=== PATIENT | male | born 1960 | race Caucasian/White ===

== ENCOUNTER 2019-12-03 17:25 | Inpatient (IN) | payer MEDICAID ==
[~2019-12-03] VITALS: Ht 165.1 cm; Wt 71.7 kg
--- NOTE | 2019-12-03 17:33 | NUR ---
DR SALCIDO EVALUATING PT AT BEDSIDE
[2019-12-03 17:35] VITALS: BP 154/141
[2019-12-03] MEDS ORDERED: ASPIRIN 325 MG TAB PO ONE (17:35)
[2019-12-03] MEDS ORDERED: MORPHINE SULFATE 4 MG/ML SYR IVP ONE (17:35)
--- NOTE | 2019-12-03 17:35 | NUR ---
PT PLACED ON 3 LEAD ECG AND PULSE OX.
--- NOTE | 2019-12-03 17:43 | NUR ---
59/M BIBA ALS WITH CC: MID CHEST PAIN RADIATING TO RT FLANK X 3 DAYS. STATES SOB. RR23. DENIES N/V/D/FEVER/CHILLS. DENIES DIZZINESS AND BLURRY VISION. HYPERTENSIVE AT 154/141, DR SALCIDO AWARE. HX-HTN, KIDNEY STONES, DM, HYPERCHOLESTEROLEMIA, 5MI, 3 STROKE ALL- VICODIN
--- NOTE | 2019-12-03 17:43 | NUR ---
DR. SALCIDO AWARE OF VS, BP OF 154/141
--- NOTE | 2019-12-03 17:50 | NUR ---
SERVER CASHIER AT BEDSIDE FOR BLOOD DRAW
--- NOTE | 2019-12-03 17:52 | NUR ---
TO CT VIA [facility]
--- NOTE | 2019-12-03 18:00 | NUR ---
Patient returned from CT scan. RN re-evaluating the patient at bedside.
[2019-12-03 18:01] LABS: BASOPHILS % (AUTO) 0.4 % (0.0-2.0); EOSINOPHILS # (AUTO) 0.4 K/uL (0-0.4); EOSINOPHILS % (AUTO) 4.4 % (0.0-4.0); HEMATOCRIT 41.2 % (36-52); HEMOGLOBIN 13.2 g/dL (12.0-18.0); LYMPHOCYTES # (AUTO) 1.2 K/uL (2.0-11.5); LYMPHOCYTES % (AUTO) 14.8 % (20.5-51.1); MEAN CORPUSCULAR HEMOGLOBIN 27 pg (27-31); MEAN CORPUSCULAR HGB CONC 32 g/dL (33-37); MEAN CORPUSCULAR VOLUME 84.2 fL (80-94); MONOCYTES # (AUTO) 0.5 K/uL (0.8-1.0); MONOCYTES % (AUTO) 5.7 % (1.7-9.3); NEUTROPHILS # (AUTO) 6.1 K/uL (1.8-7.7); NEUTROPHILS % (AUTO) 74.7 % (42.2-75.2); PLATELET COUNT (AUTO) 238 K/uL (140-450); RED CELL DISTRIBUTION WIDTH 17.1 % (11.6-13.7); WHITE BLOOD COUNT (AUTO) 8.2 K/uL (4.8-10.8)
--- NOTE | 2019-12-03 18:04 | NUR ---
DR SALCIDO AT BEDSIDE
--- NOTE | 2019-12-03 18:12 | NUR ---
EMT AT BEDSIDE FOR EKG
[2019-12-03] MEDS ORDERED: MAG SULF 2000 MG/WATER PREMIX 50 ML IV ONE (18:15)
[2019-12-03] MEDS ORDERED: ALBUTEROL SULFATE/IPRATROPIU 3 ML SOL IH ONE (18:15)
[2019-12-03] MEDS ORDERED: methylPREDNISolone SS 125 MG in WATER STERILE 2 ML IV ONE (18:15)
[2019-12-03] MEDS ORDERED: WATER STERILE 10 ML MC ONE (18:20)
[2019-12-03] MEDS ORDERED: methylPREDNISolone SS 125 MG/2 ML VIAL ONE (18:20)
[2019-12-03 18:22] LABS: ALBUMIN 2.9 g/dL (3.4-5.0); ANION GAP 12.2 (8-16); CARBON DIOXIDE 28.4 mmol/L (21-32); CREATININE 1.5 mg/dL (0.6-1.3); POTASSIUM 4.6 mmol/L (3.5-5.1); TOTAL BILIRUBIN 0.3 mg/dL (0.0-1.0)
--- NOTE | 2019-12-03 18:29 | NUR ---
PER DR SALCIDO INFUSED ORDERED MAG RIDER OVER 20 MIN (150 CC/HR) INSTEAD OF 25CC/HR.
--- NOTE | 2019-12-03 18:31 | NUR ---
RT AT BEDSIDE FOR RESPIRATORY INTERVENTION
[2019-12-03 18:45] LABS: CHOL/HDL RATIO 3.6 (1-4.5)
--- NOTE | 2019-12-03 18:46 | NUR ---
RT AT BEDSIDE FOR ABG
[2019-12-03 18:52] LABS: CREATINE KINASE MB 2.5 ng/mL (0-3.6)
[2019-12-03] MEDS ORDERED: INSULIN REGULAR, HUMAN 100 UNIT/ML VIAL IVP ONE (19:00)
[2019-12-03] MEDS ORDERED: NACL 0.9% 1,000 ML IV ONE (19:00)
[2019-12-03] MEDS ORDERED: ONDANSETRON 4 MG/2 ML VIAL IM/IVP PRN (19:05)
[2019-12-03] MEDS ORDERED: DOCUSATE SODIUM 100 MG GELCAP PO PRN (19:05)
[2019-12-03] MEDS ORDERED: DEXTROSE 50% 50 ML SYR IVP PRN (19:15)
[2019-12-03] MEDS ORDERED: CLOP75TA55 PO (19:27)
[2019-12-03] MEDS ORDERED: SPIR25TA21 PO ×2 (19:29→21:37)
[2019-12-03] MEDS ORDERED: SPIR50TA PO (19:29)
[2019-12-03] MEDS ORDERED: ISOS10TA9 PO (19:30)
[2019-12-03] MEDS ORDERED: ASPI-1822 PO (19:32)
[2019-12-03] MEDS ORDERED: NAPR-54 PO (19:33)
[2019-12-03] MEDS ORDERED: DOCU-299 PO ×2 (19:35→21:37)
[2019-12-03] MEDS ORDERED: CARV3.12 PO (19:36)
[2019-12-03] MEDS ORDERED: ATOR40TA PO (19:37)
--- NOTE | 2019-12-03 19:38 | NUR ---
NOTIFIED RAD THAT PT IS READY FOR CT SCAN
[2019-12-03] MEDS ORDERED: METF500T PO (19:39)
[2019-12-03] MEDS ORDERED: ENAL5TAB48 PO (19:43)
[2019-12-03 19:44] LABS: PROTHROMBIN TIME 10.8 secs (10.8-13.4)
[2019-12-03] MEDS ORDERED: METF500T2 PO (19:46)
[2019-12-03] MEDS ORDERED: FURO-570 PO (19:47)
[2019-12-03] MEDS ORDERED: ALBUTEROL SULFATE/IPRATROPIU 3 ML SOL IH PRN (19:50)
--- NOTE | 2019-12-03 19:52 | NUR ---
PT AT CT SCAN
[2019-12-03 19:55] LABS: MAGNESIUM 1.8 mg/dL (1.8-2.4); PHOSPHORUS 2.7 mg/dL (2.5-4.9); THYROID STIMULATING HORMONE 2.35 uIU/mL (0.34-3.74)
--- NOTE | 2019-12-03 20:02 | NUR ---
PT BACK FROM CT SCAN
--- NOTE | 2019-12-03 20:05 | NUR ---
PT AMB TO BATHROOM STEADY GAIT. PT STATES PAIN HAS DECREASED.
--- NOTE | 2019-12-03 20:20 | NUR ---
ULTRASOUND AT BEDSIDE.
[2019-12-03] MEDS: BLOOD GLUCOSE MONITORING 1 DEV DEV FS SCH (21:00)
[2019-12-03] MEDS ORDERED: FUROSEMIDE 40 MG/4 ML VIAL IVP SCH (21:05)
--- NOTE | 2019-12-03 21:10 | NUR ---
Patient will be admitted to care of DR ALTAMIRANO. Admited to TELE. Will go to room 107B. Belongings list completed. Report to ANH KELLY.
[2019-12-03 21:30] VITALS: BP 130/90
--- NOTE | 2019-12-03 21:30 | NUR ---
RECIEVED PT AAOX4 , [facility] ER , TACHYPNEA - O2 SAT 100% - 99% , W/ CRACKLES BREATH SOUNDS , IV SITES INTACT AND PATENT , AMBULATES TO BED ,BP 130/90 , TX 105 - WILL GIVE LASIX , INSULIN JUST GIVEN AT THE ER - WILL RE CHECK THE HGT . ADM. ASSESSMENT- DONE - URINE SAMPLE , MRSA SPECIMEN SENT TO LAB , DENIES ANY PAIN . PUT ON SAFETY PRECAUTION . POC DISCUSSED AND VERBALIZE UNDERSTANDING , CALL LIGHT , URINAL WITHIN REACH . SKIN INTACT . WILL CONT. TO MONITOR. HOOK ON SAT MONITORING - ON FINISHER COLD ROLLING.
[2019-12-03] MEDS ORDERED: ISOS5TAB10 PO (21:37)
[2019-12-03] MEDS ORDERED: [UNRECOGNIZED DRUG - CODE] PO (21:37)
[2019-12-03] MEDS: NACL 0.9% 1,000 ML IV SCH (22:30)
[2019-12-03] MEDS ORDERED: POLYETHYLENE GLYCOL 17 GM/PKT PO SCH (23:00)
[2019-12-03] MEDS ORDERED: DOCUSATE SODIUM 100 MG GELCAP PO SCH (23:00)
[2019-12-03 23:21] LABS: APPEARANCE,URINE CLEAR (CLEAR); BILIRUBIN,URINE NEGATIVE (NEGATIVE); BLOOD, URINE NEGATIVE (NEGATIVE); COLOR,URINE YELLOW (YELLOW); LEUKOCYTE ESTERASE ,URINE NEGATIVE (NEGATIVE); NITRITE, URINE NEGATIVE (NEGATIVE); PH,URINE 5.5 (5.0-9.0); UGLUCOSE 3+ (NEGATIVE)
[2019-12-03 23:33] LABS: BARBITURATE, URINE NEGATIVE ng/ml (NEG <=200); BENZODIAZEPINE, URINE NEGATIVE ng/mL (NEG <=200); CANNABINOID, URINE NEGATIVE ng/mL (NEG <=50); COCAINE, URINE NEGATIVE ng/mL (NEG <=300); OPIATE, URINE POSITIVE ng/mL (NEG <=2000); PHENCYCLIDINE SCREEN,URINE NEGATIVE ng/mL (NEG <=25)
[2019-12-04] VITALS: BP 142/104
[2019-12-04] MEDS ORDERED: HEPARIN PER PHARMACY MC PRN (00:55)
--- NOTE | 2019-12-04 00:58 | NUR ---
TROPONIN 0.250 - INFORM DR. MEDINA - WAITING FURTHER ORDER. WILL CONT. TO MONITOR.
[2019-12-04] MEDS ORDERED: hePARIN / DEXT 5% PREMIX 250 ML IV SCH (01:05)
[2019-12-04] MEDS ORDERED: ISOSORBIDE DINITRATE 10 MG TAB PO SCH (02:00)
--- NOTE | 2019-12-04 02:00 | NUR ---
MADE ROUNDS - C/O CHEST PAIN BUT BEARABLE - WILL GIVE ISORDIL ORDERED - FOR CLOSELY WATCH . CALL LIGHT WITHIN REACH.
[2019-12-04] MEDS: hePARIN / DEXT 5% PREMIX 250 ML IV SCH ×3 (02:41→17:43)
--- NOTE | 2019-12-04 03:58 | NUR ---
MADE ROUNDS , RESTING ON BED HE SAID VERY LIGHT CHEST PAIN AT THIS TIME . WILL CONT. TO MONITOR.
[2019-12-04 04:00] VITALS: BP 140/80
[2019-12-04] MEDS: BLOOD GLUCOSE MONITORING 1 DEV DEV FS SCH ×4 (05:53→20:19)
[2019-12-04] MEDS: INSULIN LISPRO SLIDING SCALE 100 UNITS/ML VIAL SUBQ PRN ×3 (05:56→20:11)
--- NOTE | 2019-12-04 07:10 | NUR ---
RECEIVED REPORT FROM NIGHT NURSE. PT IS AWAKE AND ALERT NO DISTRESS NOTED. RESPIRATIONS EVEN AND UNLABORED ON ROOM AIR. SAFETY MEASURES IN PLACE AND CALL LIGHT WITH IN REACH. WILL CONTINUE TO MONITOR.
[2019-12-04] MEDS: ALBUTEROL SULFATE/IPRATROPIU 3 ML SOL IH SCH ×3 (07:35→19:12)
--- NOTE | 2019-12-04 07:48 | NUR ---
AWAKE AND ALERT VERBALLY RESPONSIVE TOLERATED INCENTIVE SPIROMETRY THERAPY WELL WITHOUT INCIDENT ENCOURAGED PATIENT WITH ACKNOWLEDGEMENT TO USE INCENTIVE SPIROMETRY EVERY 1-2 HOURS WHILE AWAKE
[2019-12-04 08:00] VITALS: BP_SYST 117; BP_SYST 133; BP_DIAS 79; BP_DIAS 91
--- NOTE | 2019-12-04 08:51 | NUR ---
PATIENT HAS BEEN SCREENED AND CATEGORIZED MODERATE NUTRITION RISK. PATIENT WILL BE SEEN WITHIN 3-5 DAYS OF ADMISSION. 12/06/19 12/08/[address]
[2019-12-04 08:59] LABS: BASOPHILS # (AUTO) 0.1 K/uL (0.00-0.22); BASOPHILS % (AUTO) 0.8 % (0.0-2.0); HEMATOCRIT 38.9 % (36-52); HEMOGLOBIN 12.7 g/dL (12.0-18.0); LYMPHOCYTES # (AUTO) 0.7 K/uL (2.0-11.5); LYMPHOCYTES % (AUTO) 4.7 % (20.5-51.1); MEAN CORPUSCULAR HEMOGLOBIN 27 pg (27-31); MEAN CORPUSCULAR HGB CONC 33 g/dL (33-37); MEAN CORPUSCULAR VOLUME 83.1 fL (80-94); MONOCYTES # (AUTO) 0.1 K/uL (0.8-1.0); NEUTROPHILS # (AUTO) 14.1 K/uL (1.8-7.7); NEUTROPHILS % (AUTO) 93.5 % (42.2-75.2); PLATELET COUNT (AUTO) 245 K/uL (140-450); RED BLOOD CELL COUNT(AUTO) 4.68 MIL/uL (4.20-6.10); RED CELL DISTRIBUTION WIDTH 16.8 % (11.6-13.7); WHITE BLOOD COUNT (AUTO) 15.1 K/uL (4.8-10.8)
[2019-12-04] MEDS ORDERED: ASPIRIN 81 MG TAB.CHEW PO SCH (09:00)
[2019-12-04 09:12] LABS: ANION GAP 15.7 (8-16); CARBON DIOXIDE 24.8 mmol/L (21-32); CREATININE 1.3 mg/dL (0.6-1.3); POTASSIUM 4.5 mmol/L (3.5-5.1)
[2019-12-04] MEDS: ISOSORBIDE DINITRATE 10 MG TAB PO SCH ×3 (09:39→18:08)
[2019-12-04] MEDS: CLOPIDOGREL 75 MG TAB PO SCH (09:39)
[2019-12-04] MEDS: DOCUSATE SODIUM 100 MG GELCAP PO SCH ×2 (09:41→20:12)
[2019-12-04] MEDS: ASPIRIN 81 MG TAB.CHEW PO SCH (09:42)
[2019-12-04] MEDS: ENALAPRIL 2.5 MG TAB PO SCH (09:42)
[2019-12-04] MEDS: CARVEDILOL 3.125 MG TAB PO SCH ×2 (09:43→20:12)
[2019-12-04] MEDS: ATORVASTATIN 20 MG TAB PO SCH (09:45)
[2019-12-04] MEDS: SPIRONOLACTONE 25 MG TAB PO SCH (09:46)
--- NOTE | 2019-12-04 10:01 | NUR ---
MEDICATIONS DUE GIVEN , PT TOLERATED WELL. WILL CONTINUE TO MONITOR.
--- NOTE | 2019-12-04 10:25 | NUR ---
Manager Corporate Note: Basic Screen: Yes High Risk DC Screen [place]: DELORIS Caal Relationship: FRIEND/ROOMMATE Pre-Admission Living Arrangements: Lives with Other Prior ADL Independent Current Home Health Name/Tel: N/A Current DME/02 Name/Tel: N/A Current Hospice Name/Tel: N/A Current Dialysis Name/Tel: N/A Healthcare Decision Maker: Patient Advance Directive No Physician Orders for Life Sustaining Treatment Form No Patient/Family Have Educational Needs No Discipline: Case Mgt/Social Svcs Tentative Discharge Plan/Destination: No Needs Identified Will require assistance post discharge: No Referred to Supervisor Frame Sample And Pattern: No Tentative Discharge Plan Summary: Patient is a 59-year-old male admitted for NSTEMI and uncontrolled DM. Patient has PMHX of cardiac disorders, cerebrovascular accide, diabetes, and hypertension. Patient was admitted from home where he lives with two roommates. SW contacted Deloris Manning [phone] to verify demographics. Per Deloris, patient lives with him and his sister. Deloris reported that patient is independent with ADLs and has no history of mental health or substance abuse. Tentative discharge plan is for patient to return home. No further needs identified. Signature: CORINNA Stauffer Date: Dec 04, 2019 Time: 10:24
--- NOTE | 2019-12-04 11:30 | NUR ---
BLOOD GLUCOSE MONITORING DONE WITH A READING OF 297MH/DL.
[2019-12-04 12:00] VITALS: BP 133/91
--- NOTE | 2019-12-04 13:00 | NUR ---
PT COMPLAINS OF PAIN AND REPORTED TO THE DR. PT WAS ASSESSED AND WAS GIVEN MEDICATIONS FOR HEADACHE. PT IS STABLE. WILL CONTINUE TO MONITOR.
[2019-12-04] MEDS: ACETAMINOPHEN EXTRA STRENGTH 500 MG TAB PO PRN (13:50)
[2019-12-04] MEDS: HYDRAGUARD CREAM TP SCH ×2 (15:41→17:00)
--- NOTE | 2019-12-04 15:47 | NUR ---
SCHEDULED MEDICATIONS DUE GIVEN. WILL CONTINUE TO MONITOR.
[2019-12-04 16:00] VITALS: BP 113/72
--- NOTE | 2019-12-04 16:31 | NUR ---
BLOOD GLUCOSE MONITORING DONE. 128MG/DL NO INSULIN COVERAGE. WILL CONTINUE TO MONITOR.
--- NOTE | 2019-12-04 18:09 | NUR ---
PATIENT SITTING IN BED TALKING ON HIS PHONE. NO DISTRESS NOTED. DENIES ANY PAIN. SCHEDULED MEDICATIONS DUE GIVEN. WILL CONTINUE TO MONITOR.
[2019-12-04] MEDS: NACL 0.9% 1,000 ML IV SCH (19:03)
--- NOTE | 2019-12-04 19:21 | NUR ---
ENDORSED TO NIGHT NURSE. PT IS STABLE
--- NOTE | 2019-12-04 19:21 | NUR ---
RECEIVED PT AAOX4 , NID , RESTING ON BED COMFORTABLY , ON HEPARIN DRIP AT 920 "U" /HR - ON PTT MONITORING . NO S/S OF BLEEDING AT THIS TIME . USES URINAL - CLEAR U.O . RA - O2 SAT WNL . POC DISCUSSED AND VERBALIZE UNDERSTANDING - CALL LIGHT WITHIN REACH . SAFETY MEASURE I PLACE . WILL CONT. TO MONITOR . ON TELE MONITOR.
[2019-12-04 20:00] VITALS: BP 125/76
[2019-12-04] MEDS ORDERED: INSULIN LANTUS 100 UNITS/ML 10 ML VIAL SUBQ SCH (21:00)
--- NOTE | 2019-12-04 21:42 | NUR ---
PT C/O CONSTIPATION , HE SAID COLACE SEEMS DOES NOT WORKS - WILL REFER TO ANGELA.
[2019-12-04] MEDS ORDERED: LACTULOSE 20 GM/30 ML UDC PO SCH (21:45)
[2019-12-04] MEDS ORDERED: BISACODYL 10 MG SUPP RC SCH (21:45)
--- NOTE | 2019-12-04 23:10 | NUR ---
C/O CHEST PAIN - REFER TO DR. MEDINA.
--- NOTE | 2019-12-04 23:14 | NUR ---
S/E BY DR.NGUYEN Ann BROOKS FOR FURTHER ORDER. CLOSE WATCH- ON TELE MONITOR., CALL LIGHT WITHIN REACH.
[2019-12-04] MEDS: MORPHINE SULFATE 2 MG/ML SYR IVP PRN (23:30)
--- NOTE | 2019-12-04 23:30 | NUR ---
MORPHINE SO4 TIV GIVEN ORDERED - WILL CONT. TO MONITOR. DULCOLAX ORDERED FOR CONSTIPATION REFUSED BY THE PT. - INFORMED ANGELA.
[2019-12-05] VITALS (7 sets, daily range): BP systolic 99–131; BP diastolic 69–90
--- NOTE | 2019-12-05 02:00 | NUR ---
MADE ROUNDS . REDUCED CHEST PAIN HE SAID - WILL CONT. TO MONITOR.
[2019-12-05] MEDS: hePARIN / DEXT 5% PREMIX 250 ML IV SCH (02:47)
[2019-12-05] MEDS: BLOOD GLUCOSE MONITORING 1 DEV DEV FS SCH ×4 (06:13→17:14)
[2019-12-05] MEDS: INSULIN LISPRO SLIDING SCALE 100 UNITS/ML VIAL SUBQ PRN (06:17)
--- NOTE | 2019-12-05 07:25 | NUR ---
BEDSIDE SHIFT REPORT RECEIVED FROM HEEL FINISHER NURSE FOR CONTINUATION OF CARE.
[2019-12-05 07:29] LABS: BASOPHILS # (AUTO) 0.1 K/uL (0.00-0.22); BASOPHILS % (AUTO) 0.7 % (0.0-2.0); EOSINOPHILS # (AUTO) 0.2 K/uL (0-0.4); EOSINOPHILS % (AUTO) 1.1 % (0.0-4.0); HEMATOCRIT 40.6 % (36-52); HEMOGLOBIN 12.8 g/dL (12.0-18.0); LYMPHOCYTES # (AUTO) 2.2 K/uL (2.0-11.5); MEAN CORPUSCULAR HEMOGLOBIN 27 pg (27-31); MEAN CORPUSCULAR HGB CONC 32 g/dL (33-37); MEAN CORPUSCULAR VOLUME 84.3 fL (80-94); MONOCYTES # (AUTO) 0.9 K/uL (0.8-1.0); MONOCYTES % (AUTO) 6.2 % (1.7-9.3); NEUTROPHILS # (AUTO) 10.5 K/uL (1.8-7.7); PLATELET COUNT (AUTO) 260 K/uL (140-450); RED BLOOD CELL COUNT(AUTO) 4.82 MIL/uL (4.20-6.10); RED CELL DISTRIBUTION WIDTH 17.2 % (11.6-13.7); WHITE BLOOD COUNT (AUTO) 13.8 K/uL (4.8-10.8)
[2019-12-05] MEDS: DOCUSATE SODIUM 100 MG GELCAP PO SCH ×2 (08:09→20:57)
[2019-12-05] MEDS: SPIRONOLACTONE 25 MG TAB PO SCH (08:10)
[2019-12-05] MEDS: ASPIRIN 81 MG TAB.CHEW PO SCH (08:10)
[2019-12-05] MEDS: ATORVASTATIN 20 MG TAB PO SCH (08:11)
[2019-12-05] MEDS: CLOPIDOGREL 75 MG TAB PO SCH (08:11)
[2019-12-05] MEDS: ISOSORBIDE DINITRATE 10 MG TAB PO SCH ×3 (08:12→17:15)
[2019-12-05] MEDS: CARVEDILOL 3.125 MG TAB PO SCH ×2 (08:13→20:57)
[2019-12-05] MEDS: ENALAPRIL 2.5 MG TAB PO SCH (08:13)
[2019-12-05] MEDS: FUROSEMIDE 40 MG/4 ML VIAL IVP SCH (08:14)
[2019-12-05] MEDS: HYDRAGUARD CREAM TP SCH ×3 (08:19→17:15)
--- NOTE | 2019-12-05 09:00 | NUR ---
MEDICATIONS TOLERATED PO, DENIES PAIN AT THIS TIME. URINAL EMPTIED. ALL CONCERNS ADDRESSED AT THIS TIME.
[2019-12-05] MEDS: ALBUTEROL SULFATE/IPRATROPIU 3 ML SOL IH SCH ×3 (09:55→19:40)
[2019-12-05 10:03] LABS: ANION GAP 13.7 (8-16); CARBON DIOXIDE 24.3 mmol/L (21-32); CREATININE 1.1 mg/dL (0.6-1.3)
[2019-12-05 10:31] LABS: MAGNESIUM 2.3 mg/dL (1.8-2.4); PHOSPHORUS 3.4 mg/dL (2.5-4.9)
--- NOTE | 2019-12-05 11:55 | NUR ---
HYDRAGUARD APPLIED ON SACRAL PRESSURE WOUND. PATIENT TOLERATED WELL. PATIENT RESTING IN BED, OBSERVED CHEST RISE AND FALL. CALL LIGHT ON AND WITHIN REACH WILL CONTINUE TO MONITOR.
--- NOTE | 2019-12-05 13:50 | NUR ---
PATIENT HAS HAD 2 URINALS EMPTIED TODAY, PATIENTS BREATHING IS BECOMING LESS LABORED. HE DENIES CHEST PAIN AT THIS TIME.
--- NOTE | 2019-12-05 15:41 | NUR ---
PATIENT IS RESTING IN BED, CALL LIGHT ON AND WITHIN REACH, VERBALIZED UNDERSTANDING OF HOW TO USE CALL LIGHT.
--- NOTE | 2019-12-05 16:12 | NUR ---
DC PLANNIN YRS OLD MALE PATIENT WAS ADMITTED FROM HOME WITH A DX OF NSTEMI, UNCONTROLLED DM AND R/O PE . PT HAS A HX OF CHF, PA, CVA, DM, HTN AND HLD. CXR SHOWED MODERATE CARDIOMEGALY , CT CHEST SHOWED NO PE , RT PROTOCOL INITIATED ECHO PENDING STRICT I&O CONTINUE HOME MEDS ADMINISTERED IV LASIX . CARDIO CONSULT FOR TROP 0.[address] DIONI AGUIRRE AFTER THE 3RD TROPONIN TRENDING DOWN 0.190 AND DISCONTINUED HEPARIN DRIP. DC PLAN TO GO HOME WHEN STABLE. CM TO FOLLOW.
[2019-12-05] MEDS: ACETAMINOPHEN EXTRA STRENGTH 500 MG TAB PO PRN (18:47)
--- NOTE | 2019-12-05 19:20 | NUR ---
RECEIVED PT AAOX4 , PT RESTING ON BED COMFORTABLY , HEPARIN DRIP RECEIVED D/C ORDERS EARLIER. ON TELE MONITOR. NO S/S OF BLEEDING AT THIS TIME . NO SOB. NO RESPIRATORY DISTRESS, O2 SAT WNL. W/ IVF ON THE LEFT HAND G 20, RUNNING ORDERED IVF PATENT AND INTACT. POC REVIEWED AND VERBALIZE UNDERSTANDING. CALL LIGHT WITHIN REACH . SAFETY MEASURE IN PLACE . WILL CONT. TO MONITOR .
[2019-12-05] MEDS: MORPHINE SULFATE 2 MG/ML SYR IVP PRN (19:53)
[2019-12-05] MEDS: NACL 0.9% 1,000 ML IV SCH (20:02)
--- NOTE | 2019-12-05 20:04 | NUR ---
UNDONE THE MORPHINE SO4 IT IS FOR ANOTHER PATIENT. NOT ADMINISTERED WITH THIS PATIENT
[2019-12-05] MEDS ORDERED: INSULIN LANTUS 100 UNITS/ML 10 ML VIAL SUBQ SCH (21:00)
--- NOTE | 2019-12-05 23:15 | NUR ---
PT SLEEPING , NO RESPIRATORY DISTRESS; NO COMPLAINTS AT THIS TIME;
[2019-12-06] VITALS: BP 128/56
[2019-12-06] MEDS: ACETAMINOPHEN EXTRA STRENGTH 500 MG TAB PO PRN (01:31)
--- NOTE | 2019-12-06 01:31 | NUR ---
PT C/O OF HEADACHE MODERATE PAIN 5/10 ADMINISTERED TYLENOL
[2019-12-06 04:00] VITALS: BP 123/72
--- NOTE | 2019-12-06 04:00 | NUR ---
PT SLEEPING AT THIS TIME; NO COMPLAINTS NO RESPIRATORY DISTRESS; PT NOT IN PAIN
[2019-12-06] MEDS: BLOOD GLUCOSE MONITORING 1 DEV DEV FS SCH ×2 (05:42→11:13)
[2019-12-06] MEDS: INSULIN LISPRO SLIDING SCALE 100 UNITS/ML VIAL SUBQ PRN ×2 (06:10→11:36)
--- NOTE | 2019-12-06 06:58 | NUR ---
PT SLEEPING, EASILY AROUSABLE; PT IN STABLE CONDITION .WILL ENDORSE TO NEXT SHIFT
--- NOTE | 2019-12-06 07:10 | NUR ---
RECEIVED REPORT FROM NIGHT NURSE. PT IS AWAKE AND ALERT, PT IS STABLE , NO DISTRESS NOTED, RESPIRATIONS EVEN AND UNLABORED ON ROOM AIR. SAFETY MEASURES IN PLACE, CALL LIGHT WITH IN REACH. WILL CONTINUE TO MONITOR.
[2019-12-06] MEDS: ALBUTEROL SULFATE/IPRATROPIU 3 ML SOL IH SCH (07:17)
[2019-12-06 07:20] LABS: BASOPHILS # (AUTO) 0.1 K/uL (0.00-0.22); EOSINOPHILS # (AUTO) 0.3 K/uL (0-0.4); EOSINOPHILS % (AUTO) 4.5 % (0.0-4.0); HEMATOCRIT 38.5 % (36-52); HEMOGLOBIN 12.1 g/dL (12.0-18.0); LYMPHOCYTES # (AUTO) 1.7 K/uL (2.0-11.5); LYMPHOCYTES % (AUTO) 22.8 % (20.5-51.1); MEAN CORPUSCULAR HEMOGLOBIN 27 pg (27-31); MEAN CORPUSCULAR HGB CONC 32 g/dL (33-37); MEAN CORPUSCULAR VOLUME 84.3 fL (80-94); MONOCYTES # (AUTO) 0.5 K/uL (0.8-1.0); MONOCYTES % (AUTO) 7.2 % (1.7-9.3); NEUTROPHILS # (AUTO) 4.8 K/uL (1.8-7.7); NEUTROPHILS % (AUTO) 64.5 % (42.2-75.2); PLATELET COUNT (AUTO) 237 K/uL (140-450); RED BLOOD CELL COUNT(AUTO) 4.56 MIL/uL (4.20-6.10); RED CELL DISTRIBUTION WIDTH 17.3 % (11.6-13.7); WHITE BLOOD COUNT (AUTO) 7.5 K/uL (4.8-10.8)
[2019-12-06 07:41] LABS: ANION GAP 11.4 (8-16); CARBON DIOXIDE 28.8 mmol/L (21-32); CREATININE 1.1 mg/dL (0.6-1.3); MAGNESIUM 1.8 mg/dL (1.8-2.4); PHOSPHORUS 3.6 mg/dL (2.5-4.9); POTASSIUM 4.2 mmol/L (3.5-5.1)
[2019-12-06 08:00] VITALS: BP 130/89
[2019-12-06] MEDS: CARVEDILOL 3.125 MG TAB PO SCH (08:33)
[2019-12-06] MEDS: CLOPIDOGREL 75 MG TAB PO SCH (08:34)
[2019-12-06] MEDS: ENALAPRIL 2.5 MG TAB PO SCH (08:34)
[2019-12-06] MEDS: ATORVASTATIN 20 MG TAB PO SCH (08:34)
[2019-12-06] MEDS: DOCUSATE SODIUM 100 MG GELCAP PO SCH (08:35)
[2019-12-06] MEDS: ISOSORBIDE DINITRATE 10 MG TAB PO SCH ×2 (08:35→13:00)
[2019-12-06] MEDS: ASPIRIN 81 MG TAB.CHEW PO SCH (08:35)
[2019-12-06] MEDS: SPIRONOLACTONE 25 MG TAB PO SCH (08:36)
[2019-12-06] MEDS: FUROSEMIDE 40 MG/4 ML VIAL IVP SCH (08:39)
[2019-12-06] MEDS ORDERED: LANTUS SUBQ (08:42)
[2019-12-06] MEDS: HYDRAGUARD CREAM TP SCH ×2 (08:43→13:00)
--- NOTE | 2019-12-06 08:46 | NUR ---
MEDICATIONS DUE GIVEN. CHECK VITAL SIGNS PRIOR TO MEDICATION. BP: 133/94, MS; 74 TAKEN MANUALLY. PT TOLERATED WELL. SAFETY MEASURES IN PLACE.WILL CONTINUE TO MONITOR.
--- NOTE | 2019-12-06 10:15 | NUR ---
PT WAS GIVEN IVPB ROCEPHIN NOW, WILL MONITOR PT.
--- NOTE | 2019-12-06 11:13 | NUR ---
BLOOD GLUCOSE CHECK DONE TO PT AND RESULT IS 186 AND INSULIN COVERAGE WAS GIVEN. WILL MONITOR PT
[2019-12-06 12:00] VITALS: BP 129/85
--- NOTE | 2019-12-06 12:35 | NUR ---
PT WAS DISCHARGE AT THIS TIME TO HOME AND LEFT THE UNIT VIA WHEELCHAIR ACCOMPANIED BY FAMILY MEMBER. DISCHARGE INSTRUCTIONS WAS PROVIDED TO THE PT AT BEDSIDE, EDUCATED PT ON DIABETIC DIET MANAGEMENT, PT VERBALIZES UNDERSTANDING. IV LINES AND ARM BAND REMOVED, PT DENIES PAIN AND IS STABLE AT THIS TIME.
== END 2019-12-06 12:35 | disposition home or self-care (01) | DRG 190 ==
LOC: MED 17:25 → MTU 19:03
PROVIDERS: ADMIT General Practice; ATTEND General Practice
DX: I21.A1 Myocardial infarction type 2 (principal); N17.0 Acute kidney failure with tubular necrosis; I50.43 Acute on chronic combined systolic (congestive) and diastolic (congestive) heart failure; E44.0 Moderate protein-calorie malnutrition; R65.10 Systemic inflammatory response syndrome (SIRS) of non-infectious origin without acute organ dysfunction; E11.65 Type 2 diabetes mellitus with hyperglycemia; I11.0 Hypertensive heart disease with heart failure; I31.3 Pericardial effusion (noninflammatory); J98.11 Atelectasis; K80.20 Calculus of gallbladder without cholecystitis without obstruction; E78.5 Hyperlipidemia, unspecified; T38.0X5A Adverse effect of glucocorticoids and synthetic analogues, initial encounter; E78.00 Pure hypercholesterolemia, unspecified; F15.129 Other stimulant abuse with intoxication, unspecified; Z68.26 Body mass index [BMI] 26.0-26.9, adult; Z95.5 Presence of coronary angioplasty implant and graft; Z86.73 Personal history of transient ischemic attack (TIA), and cerebral infarction without residual deficits; Z86.718 Personal history of other venous thrombosis and embolism; Y92.89 Other specified places as the place of occurrence of the external cause; Z88.8 Allergy status to other drugs, medicaments and biological substances; I25.2 Old myocardial infarction; Z79.899 Other long term (current) drug therapy; Z87.442 Personal history of urinary calculi; Z79.84 Long term (current) use of oral hypoglycemic drugs; Z83.3 Family history of diabetes mellitus; Z82.49 Family history of ischemic heart disease and other diseases of the circulatory system
CPT/HCPCS: 36415; 36600; 71045; 71250; 71275; 76705; 80048; 80053; 80305; 81003; 82140; 82550; 82553; 82803; 82948; 83036; 83605; 83690; 83735; 83880; 84100; 84443; 84484; 85025; 85379; 85610; 85730; 87040; 87081; 93005; 93970; 94640; 96361; 96365; 96375; 99291; J0696; J1644; J1815; J1940; J2270; J2405; J2930; J3475; J7030; J7060; Q0092; Q0163; Q9967

== ENCOUNTER 2019-12-13 10:10 | Emergency (ER) | payer MEDICAID ==
[~2019-12-13] VITALS: Ht 165.1 cm; Wt 66.7 kg
[~2019-12-13 10:10] MED LIST: ASPI-1822 PO; ATOR40TA PO; CARV3.12 PO; CLOP75TA55 PO; DOCU-299 PO; FURO-570 PO; ISOS5TAB10 PO; LANTUS SUBQ; METF500T PO; NAPR-54 PO; SPIR25TA21 PO; [UNRECOGNIZED DRUG - CODE] PO
--- NOTE | 2019-12-13 10:10 | NUR ---
Patient transferred to bed 4 via wheelchair by tech. RN evaluating patient at bedside.
[2019-12-13 10:13] VITALS: BP 150/87
[2019-12-13] MEDS ORDERED: MORPHINE SULFATE 4 MG/ML SYR IVP ONE (10:20)
--- NOTE | 2019-12-13 10:22 | NUR ---
59 y/o m c/c fall/nausea x 3 days ago. per pt walked and slipped due to water. denies loc. pt complaints of back pain due to fall 05/12, skin intact on back no noticed wounds or bruises. pt nka. hx htn,dm,mi. rx pt does not recall. denies v/d. side rail x1.
[2019-12-13] MEDS ORDERED: INSULIN REGULAR, HUMAN 100 UNIT/ML VIAL SUBQ ONE (10:35)
--- NOTE | 2019-12-13 10:38 | NUR ---
pt taken to xray via itzel
--- NOTE | 2019-12-13 11:35 | NUR ---
Patient returned from XRAY. RN re-evaluating the patient at bedside.
--- NOTE | 2019-12-13 11:38 | NUR ---
pt back in room from RAD resting in bed, side rail x1
[2019-12-13 12:44] VITALS: BP 142/82
--- NOTE | 2019-12-13 12:44 | NUR ---
Patient discharged with v/s stable. Written and verbal after care instructions given and explained. Patient verbalized understanding. Wheel Chair Assisted with steady gait. All questions addressed prior to discharge. Advised to follow up with PMD.
== END 2019-12-13 12:44 | disposition home or self-care (01) ==
LOC: MED 10:10
DX: M54.2 Cervicalgia (principal); W01.0XXA Fall on same level from slipping, tripping and stumbling without subsequent striking against object, initial encounter; R73.9 Hyperglycemia, unspecified; I10 Essential (primary) hypertension; E11.9 Type 2 diabetes mellitus without complications; M54.5 Low back pain; I25.2 Old myocardial infarction; Z88.8 Allergy status to other drugs, medicaments and biological substances; Z86.73 Personal history of transient ischemic attack (TIA), and cerebral infarction without residual deficits; Z79.899 Other long term (current) drug therapy; Y93.89 Activity, other specified; Y92.89 Other specified places as the place of occurrence of the external cause; Y99.8 Other external cause status
CPT/HCPCS: 71111; 72040; 72072; 72100; 96372; 96374; 99284; J1815; J2270

== ENCOUNTER 2019-12-27 16:18 | Inpatient (IN) | payer MEDICAID ==
[~2019-12-27] VITALS: Ht 167.6 cm; Wt 72.6 kg
--- NOTE | 2019-12-27 16:18 | NUR ---
PT IN WHEELCHAIR TO ER BED 04
--- NOTE | 2019-12-27 16:20 | NUR ---
59 Y/O MALE FROM HOME C/O CHEST PAIN X 5 DAYS WORSENING TODAY. PT STATES 8/10 PRESSURE TO LT SIDE OF CHEST. C/O SOB WITH INCREASED FATIGUE X 5 DAYS. RR EVEN AND LABORED. ABLE TO SPEAK 3-5 WORD SENTENCES. PLACED ON MONITOR, O2 SAT, AND BP CUFF ON ARM.
[2019-12-27 16:21] VITALS: BP 144/94
--- NOTE | 2019-12-27 16:34 | NUR ---
STAT LABS DRAWN AND AT BEDSIDE.
--- NOTE | 2019-12-27 16:35 | NUR ---
PT PLACED ON 3 LEAD ECG AND PULSE OX.
--- NOTE | 2019-12-27 16:51 | NUR ---
DR HAAS AT BEDSIDE EXAMINING PT
[2019-12-27] MEDS ORDERED: ASPIRIN 81 MG TAB.CHEW PO ONE ×2 (17:05→17:20)
[2019-12-27] MEDS ORDERED: NITROGLYCERIN 0.4 MG TAB SL ONE (17:05)
--- NOTE | 2019-12-27 17:34 | NUR ---
XRAY AT BEDSIDE
[2019-12-27 17:37] LABS: BASOPHILS # (AUTO) 0.1 K/uL (0.00-0.22); BASOPHILS % (AUTO) 0.8 % (0.0-2.0); EOSINOPHILS # (AUTO) 0.5 K/uL (0-0.4); EOSINOPHILS % (AUTO) 7.1 % (0.0-4.0); HEMATOCRIT 38.7 % (36-52); HEMOGLOBIN 12.3 g/dL (12.0-18.0); LYMPHOCYTES # (AUTO) 1.2 K/uL (2.0-11.5); LYMPHOCYTES % (AUTO) 16.5 % (20.5-51.1); MEAN CORPUSCULAR HEMOGLOBIN 26 pg (27-31); MEAN CORPUSCULAR HGB CONC 32 g/dL (33-37); MONOCYTES # (AUTO) 0.6 K/uL (0.8-1.0); MONOCYTES % (AUTO) 7.6 % (1.7-9.3); PLATELET COUNT (AUTO) 283 K/uL (140-450); RED BLOOD CELL COUNT(AUTO) 4.66 MIL/uL (4.20-6.10); RED CELL DISTRIBUTION WIDTH 18.9 % (11.6-13.7); WHITE BLOOD COUNT (AUTO) 7.4 K/uL (4.8-10.8)
[2019-12-27 18:06] LABS: ALBUMIN 2.9 g/dL (3.4-5.0); CARBON DIOXIDE 24.3 mmol/L (21-32); POTASSIUM 4.3 mmol/L (3.5-5.1); TOTAL BILIRUBIN 0.3 mg/dL (0.0-1.0)
[2019-12-27 18:07] LABS: PROTHROMBIN TIME 10.2 secs (10.8-13.4)
[2019-12-27] MEDS ORDERED: FUROSEMIDE 40 MG/4 ML VIAL IVP ONE (18:25)
[2019-12-27] MEDS ORDERED: TRAM50TA1 PO (18:27)
[2019-12-27] MEDS ORDERED: MORPHINE SULFATE 4 MG/ML SYR IVP ONE (18:30)
[2019-12-27] MEDS ORDERED: ONDANSETRON 4 MG/2 ML VIAL IVP ONE (18:30)
--- NOTE | 2019-12-27 18:33 | NUR ---
POSITIONED FOR COMFORT, RESTING WITH EYES CLOSED. VISIBLE RISE AND FALL OF THE CHEST. AROUSABLE TO NAME. REMAINS ON MONITOR. WILL CONTINUE TO MONITOR
[2019-12-27] MEDS: NACL 0.9% 1,000 ML IV SCH (18:38)
[2019-12-27] MEDS ORDERED: LORazepam 2 MG/ML VIAL IM/IVP PRN (18:40)
[2019-12-27] MEDS: FUROSEMIDE 40 MG/4 ML VIAL IVP SCH (18:40)
[2019-12-27] MEDS ORDERED: DOCUSATE SODIUM 100 MG GELCAP PO PRN (18:40)
[2019-12-27] MEDS ORDERED: ZOLPIDEM 5 MG TAB PO PRN (18:40)
[2019-12-27] MEDS ORDERED: ACETAMINOPHEN 325 MG TAB PO PRN (18:40)
[2019-12-27] MEDS ORDERED: ONDANSETRON 4 MG/2 ML VIAL IM/IVP PRN (18:40)
--- NOTE | 2019-12-27 19:07 | NUR ---
Pt report RECEIVED FROM LETICIA GARRIDO. ASSUMED care OF PT at this time.
--- NOTE | 2019-12-27 19:15 | NUR ---
PT STATES MORPHINE HELPED DECREASE PAIN TO 6/10 AND IS FEELING BETTER. PT RESTING IN BED IN POSITION OF COMFORT, BED LOW AND LOCKED, SIDERAILS UP, VSS, WILL CONTINUE TO MONITOR.
[2019-12-27 19:34] LABS: AMYLASE 46 U/L (25-115); LIPASE 118 U/L (73-393); MAGNESIUM 1.9 mg/dL (1.8-2.4); PHOSPHORUS 3.2 mg/dL (2.5-4.9); THYROID STIMULATING HORMONE 2.69 uIU/mL (0.34-3.74)
[2019-12-27 19:41] LABS: APPEARANCE,URINE CLEAR (CLEAR); BILIRUBIN,URINE NEGATIVE (NEGATIVE); BLOOD, URINE NEGATIVE (NEGATIVE); COLOR,URINE YELLOW (YELLOW); LEUKOCYTE ESTERASE ,URINE NEGATIVE (NEGATIVE); NITRITE, URINE NEGATIVE (NEGATIVE); UGLUCOSE TRACE (NEGATIVE)
[2019-12-27] MEDS: INSULIN LANTUS 100 UNITS/ML 10 ML VIAL SUBQ SCH (21:00)
--- NOTE | 2019-12-27 21:25 | NUR ---
PT ASLEEP IN BED IN POSITION OF COMFORT, BED LOW AND LOCKED, 2 SIDERAILS UP, VSS. WILL CONTINUE TO MONITOR.
[2019-12-27 21:52] LABS: BARBITURATE, URINE NEGATIVE ng/ml (NEG <=200); BENZODIAZEPINE, URINE NEGATIVE ng/mL (NEG <=200); CANNABINOID, URINE NEGATIVE ng/mL (NEG <=50); COCAINE, URINE NEGATIVE ng/mL (NEG <=300); OPIATE, URINE NEGATIVE ng/mL (NEG <=2000); PHENCYCLIDINE SCREEN,URINE NEGATIVE ng/mL (NEG <=25)
[2019-12-27] MEDS ORDERED: DEXTROSE 50% 50 ML SYR IVP PRN (22:25)
--- NOTE | 2019-12-27 22:40 | NUR ---
Patient will be admitted to care of DR. ALTAMIRANO. Admited to [facility]. Will go to room 106A. Belongings list completed. Report GIVEN to LETICIA CHOWDHURY.
[2019-12-27] MEDS: CARVEDILOL 3.125 MG TAB PO SCH (23:27)
[2019-12-27] MEDS: DOCUSATE SODIUM 100 MG GELCAP PO SCH (23:27)
[2019-12-27] MEDS: ISOSORBIDE DINITRATE 10 MG TAB PO SCH (23:34)
--- NOTE | 2019-12-27 23:40 | NUR ---
RECEIVED PT FROM ER.PLACED ON BED.ORIENTED TO ROOM.CALL SYSTEM EXPLAINED AND IN REACH.TELE APPLIED AND SHOWING SR.PLAN OF CARE DISCUSSED W/PT.HE VERBALIZED UNDERSTANDINGS.IVF OF NS AT 10ML/H INFUSING VIA IV LINE IN LT.AC W/O REDNESS OR EDEMA AT SITE.RESP.UNLABORED IN RA.LUNGS CLEAR.WILL CONTINUE MONITORING.
[2019-12-28 00:34] VITALS: BP 117/82
--- NOTE | 2019-12-28 01:40 | NUR ---
2ND [id number].INFORMED .NO NEW ORDER.HR IS SR,BIPHASIC.NO C/O PAIN NOW.SLEEPING.
[2019-12-28 04:00] VITALS: BP 120/65
--- NOTE | 2019-12-28 04:00 | NUR ---
SLEEPING.NO DISTRESS NOTED .HR IS SR W/INVERTED T.
[2019-12-28] MEDS: BLOOD GLUCOSE MONITORING 1 DEV DEV FS SCH ×4 (05:30→21:23)
--- NOTE | 2019-12-28 06:58 | NUR ---
DID NOT HAVE PAIN SINCE ADMISSION.BS =50.RECHECKED IT WAS 106.NO COVERAGE NEEDED.
--- NOTE | 2019-12-28 07:00 | NUR ---
RECEIVED PT FROM PHARMACOLOGY ASSOCIATE NURSE, .PT. IS ON BED AWAKE, AAOX4, AND IN BED. ORIENTED TO ROOM. CALL SYSTEM EXPLAINED AND IN REACH.TELE MONITORING IN PLACE. PT. IS ON ROOM AIR WITH O2 STAT OF 96%. PLAN OF CARE DISCUSSED W/PT. HE VERBALIZED UNDERSTANDINGS.IVF OF NS AT 10ML/H INFUSING VIA IV LINE IN LT.AC W/O REDNESS OR EDEMA AT SITE.RESP.UNLABORED IN RA.LUNGS CLEAR.WILL CONTINUE MONITORING.D
[2019-12-28 08:00] VITALS: BP 120/60
--- NOTE | 2019-12-28 08:00 | NUR ---
PT. COMPLAINS OF CHEST PAIN OF 6/10 AND STATES IT HAS BEEN AN HOUR THAT THE PAIN IS STAYING. WILL MEDICATE.
--- NOTE | 2019-12-28 08:30 | NUR ---
MORNING MEDICATIONS GIVEN BP 120/60, HR 72. 2 .4MG NITROGLYCERIN GIVEN FOR 6/10 CHEST PAIN. WILL CONTINUE TO MONITOR.
[2019-12-28 08:34] LABS: BASOPHILS # (AUTO) 0.1 K/uL (0.00-0.22); BASOPHILS % (AUTO) 0.6 % (0.0-2.0); EOSINOPHILS # (AUTO) 0.6 K/uL (0-0.4); EOSINOPHILS % (AUTO) 7.1 % (0.0-4.0); HEMATOCRIT 40.3 % (36-52); HEMOGLOBIN 12.6 g/dL (12.0-18.0); LYMPHOCYTES # (AUTO) 1.3 K/uL (2.0-11.5); MEAN CORPUSCULAR HEMOGLOBIN 26 pg (27-31); MEAN CORPUSCULAR HGB CONC 31 g/dL (33-37); MEAN CORPUSCULAR VOLUME 83.9 fL (80-94); MONOCYTES # (AUTO) 0.6 K/uL (0.8-1.0); MONOCYTES % (AUTO) 6.8 % (1.7-9.3); NEUTROPHILS # (AUTO) 5.9 K/uL (1.8-7.7); NEUTROPHILS % (AUTO) 70.5 % (42.2-75.2); PLATELET COUNT (AUTO) 267 K/uL (140-450); RED CELL DISTRIBUTION WIDTH 18.6 % (11.6-13.7); WHITE BLOOD COUNT (AUTO) 8.4 K/uL (4.8-10.8)
[2019-12-28] MEDS: NITROGLYCERIN 0.4 MG TAB SL PRN ×2 (08:58→09:05)
[2019-12-28] MEDS ORDERED: ENALAPRIL 2.5 MG TAB PO SCH (09:00)
[2019-12-28] MEDS ORDERED: ASPIRIN 81 MG TAB.CHEW PO SCH (09:00)
[2019-12-28] MEDS: metFORMIN 500 MG TAB PO SCH ×2 (09:13→17:41)
[2019-12-28] MEDS: ATORVASTATIN 20 MG TAB PO SCH (09:13)
[2019-12-28] MEDS: CARVEDILOL 3.125 MG TAB PO SCH (09:13)
[2019-12-28] MEDS: CLOPIDOGREL 75 MG TAB PO SCH (09:14)
[2019-12-28] MEDS: ISOSORBIDE DINITRATE 10 MG TAB PO SCH (09:14)
[2019-12-28] MEDS: ASPIRIN 81 MG TAB.CHEW PO SCH (09:14)
[2019-12-28] MEDS: DOCUSATE SODIUM 100 MG GELCAP PO SCH ×2 (09:15→21:29)
[2019-12-28] MEDS: NAPROXEN 500 MG TAB PO SCH ×2 (09:16→17:41)
[2019-12-28] MEDS: SPIRONOLACTONE 25 MG TAB PO SCH (09:17)
[2019-12-28] MEDS: FUROSEMIDE 40 MG/4 ML VIAL IVP SCH (09:21)
--- NOTE | 2019-12-28 09:57 | NUR ---
PATIENT HAS BEEN SCREENED AND CATEGORIZED MODERATE NUTRITION RISK. PATIENT WILL BE SEEN WITHIN 3-5 DAYS OF ADMISSION. 12/30/19 01/01/[address]
--- NOTE | 2019-12-28 10:16 | NUR ---
TYLENOL GIVEN FOR HEADACHE OF 4/10. NO SIGNS OF DISTRESS NOTED. WILL CONTINUE TO MONITOR.
--- NOTE | 2019-12-28 11:20 | NUR ---
BLOOD GLUCOSE CHECK OF 109. NO INSULIN COVERAGE NEEDED. WILL CONTINUE TO MONITOR.
[2019-12-28 11:50] LABS: MAGNESIUM 2.1 mg/dL (1.8-2.4); PHOSPHORUS 3.6 mg/dL (2.5-4.9)
[2019-12-28 11:54] LABS: CARBON DIOXIDE 29.8 mmol/L (21-32); POTASSIUM 3.8 mmol/L (3.5-5.1)
[2019-12-28 12:00] VITALS: BP 126/83
--- NOTE | 2019-12-28 12:04 | NUR ---
Hand Gluer And Slicer Note: KALPANA attempted to contact patient's friend Basil Manning [phone]. SW left VM. SW will follow up. Addendum: 12/28/19 at 1306 by Zi Mccurdy SS Basic Screen: Yes High Risk DC Screen [place]: BASIL MANNING [place] Relationship: FRIEND/ROOMMATE Pre-Admission Living Arrangements: Lives with Other Prior ADL Independent Current Home Health Name/Tel: N/A Current DME/02 Name/Tel: N/A Current Hospice Name/Tel: N/A Current Dialysis Name/Tel: N/A Healthcare Decision Maker: Patient Advance Directive No Physician Orders for Life Sustaining Treatment Form No Patient/Family Have Educational Needs No Discipline: Case Mgt/Social Svcs Tentative Discharge Plan/Destination: No Needs Identified Will require assistance post discharge: No Referred to Stock Clerk: No Tentative Discharge Plan Summary: Patient is a 59-year-old male admitted for chest pain. Patient has PMHX of CVA, CO, DM, HTN, HLD, and CHF. Patient was admitted from home where he lives with his roommates. KALPANA contacted friend Sotero Manning [phone] to verify demogaphics. Per Sotero, patient is independent with ADLs and has no history of mental health or substance abuse. Tentative discharge plan is for patient to return home. No further needs identified. Signature: CORINNA Stauffer Date: Dec 28, 2019 Time: 13:05
[2019-12-28 16:00] VITALS: BP 98/59
--- NOTE | 2019-12-28 16:40 | NUR ---
BLOOD GLUCOSE CHECK WITH VALUE OF 102. NO INSULIN COVERAGE NEEDED. WILL CONTINUE TO MONITOR.
[2019-12-28] MEDS: NACL 0.9% 1,000 ML IV SCH (18:38)
--- NOTE | 2019-12-28 19:10 | NUR ---
ENDORSED TO SURVEY WORKER NURSE FOR CONTINUITY OF CARE.
--- NOTE | 2019-12-28 19:11 | NUR ---
RECEIVED PT FROM AM SHIFT NURSE, TAQUERIA, PT IS ON BED AWAKE, AOX4, AND IN BED ON ROOM AIR. ON TELEMONITORING. WITH IVF OF NS AT 10ML/INFUSING VIA IV LINE IN LEFT AC G 20, NO SIGNS OF RESPIRATORY DISTRESS. CALL LIGHT WITHIN REACH, POC DISCUSSED. WILL CONTINUE MONITORING.
[2019-12-28 20:00] VITALS: BP 118/72
[2019-12-28] MEDS: INSULIN LANTUS 100 UNITS/ML 10 ML VIAL SUBQ SCH (21:26)
[2019-12-28] MEDS: INSULIN LISPRO SLIDING SCALE 100 UNITS/ML VIAL SUBQ PRN (21:26)
[2019-12-28] MEDS: CARVEDILOL 6.25 MG TAB PO SCH (21:29)
[2019-12-29] VITALS: BP 98/56
--- NOTE | 2019-12-29 01:07 | NUR ---
JEANETTE CALLED FOR TROPONIN LEVEL 0. [address] WILL INFORM [address] MEDINA
--- NOTE | 2019-12-29 02:15 | NUR ---
PATIENT CHECKED AND PT EASILY AWAKENED BY VERBAL STIMULI , DRANK SOME WATER.WILL CONTINUE TO MONITOR.
[2019-12-29 04:00] VITALS: BP 108/70
--- NOTE | 2019-12-29 04:21 | NUR ---
PT DID WANT LIGHTS ON VITAL SIGNS TAKEN WNL. WILL CONTINUE TO MONITOR
[2019-12-29 06:31] LABS: CHOL/HDL RATIO 3.4 (1-4.5)
[2019-12-29] MEDS: BLOOD GLUCOSE MONITORING 1 DEV DEV FS SCH (06:31)
[2019-12-29] MEDS: INSULIN LISPRO SLIDING SCALE 100 UNITS/ML VIAL SUBQ PRN (06:33)
--- NOTE | 2019-12-29 06:56 | NUR ---
PT SLEEPING BUT EASILY AROUSED BY VERBAL STIMULI, WILL CONTINUE TO MONITOR PATIENT
--- NOTE | 2019-12-29 07:15 | NUR ---
RECEIVED PT FROM FURNACE TENDER NURSEMAURO.PT. IS IN BED AWAKE, AAOX4, AND IN BED. ORIENTED TO ROOM. CALL SYSTEM EXPLAINED AND IN REACH.TELE MONITORING IN PLACE. PT. IS ON ROOM AIR WITH O2 STAT OF 96%. PLAN OF CARE DISCUSSED W/PT. HE VERBALIZED UNDERSTANDINGS.IVF OF NS AT 10ML/H INFUSING VIA IV LINE IN LT.AC W/O REDNESS OR EDEMA AT SITE.RESP.UNLABORED IN RA WITH O2 STAT OF 100%. LUNGS CLEAR.WILL CONTINUE MONITORING.
[2019-12-29 07:48] LABS: BASOPHILS % (AUTO) 0.6 % (0.0-2.0); EOSINOPHILS # (AUTO) 0.7 K/uL (0-0.4); EOSINOPHILS % (AUTO) 8.5 % (0.0-4.0); HEMATOCRIT 38.6 % (36-52); HEMOGLOBIN 12.2 g/dL (12.0-18.0); LYMPHOCYTES # (AUTO) 1.1 K/uL (2.0-11.5); LYMPHOCYTES % (AUTO) 13.5 % (20.5-51.1); MEAN CORPUSCULAR HEMOGLOBIN 27 pg (27-31); MEAN CORPUSCULAR HGB CONC 32 g/dL (33-37); MEAN CORPUSCULAR VOLUME 83.7 fL (80-94); MONOCYTES # (AUTO) 0.6 K/uL (0.8-1.0); MONOCYTES % (AUTO) 8.1 % (1.7-9.3); NEUTROPHILS # (AUTO) 5.5 K/uL (1.8-7.7); NEUTROPHILS % (AUTO) 69.3 % (42.2-75.2); PLATELET COUNT (AUTO) 259 K/uL (140-450); RED BLOOD CELL COUNT(AUTO) 4.61 MIL/uL (4.20-6.10); RED CELL DISTRIBUTION WIDTH 18.5 % (11.6-13.7); WHITE BLOOD COUNT (AUTO) 7.9 K/uL (4.8-10.8)
[2019-12-29 08:00] VITALS: BP 115/82
[2019-12-29 08:03] LABS: ANION GAP 12.8 (8-16); CARBON DIOXIDE 27.5 mmol/L (21-32); POTASSIUM 4.3 mmol/L (3.5-5.1)
[2019-12-29] MEDS: NAPROXEN 500 MG TAB PO SCH (08:21)
[2019-12-29] MEDS: FUROSEMIDE 40 MG/4 ML VIAL IVP SCH (08:21)
[2019-12-29] MEDS: metFORMIN 500 MG TAB PO SCH (08:22)
[2019-12-29] MEDS: ATORVASTATIN 20 MG TAB PO SCH (08:22)
[2019-12-29] MEDS: CARVEDILOL 6.25 MG TAB PO SCH (08:22)
[2019-12-29] MEDS: DOCUSATE SODIUM 100 MG GELCAP PO SCH (08:23)
[2019-12-29] MEDS: CLOPIDOGREL 75 MG TAB PO SCH (08:23)
[2019-12-29] MEDS: ASPIRIN 81 MG TAB.CHEW PO SCH (08:23)
[2019-12-29] MEDS: SPIRONOLACTONE 25 MG TAB PO SCH (08:24)
--- NOTE | 2019-12-29 08:30 | NUR ---
MORNING MEDICATIONS GIVEN. NO SIGNS OF DISTRESS NOTED. BP 115/82, H4 80, O2 STAT OF 100%. PT. VERBALIZES NO PAIN. WILL CONTINUE TO MONITOR.
[2019-12-29] MEDS ORDERED: LISINOPRIL 5 MG TAB PO SCH (09:00)
[2019-12-29] MEDS ORDERED: ISOSORBIDE MONONITRATE 30 MG TABER PO SCH (09:00)
[2019-12-29] MEDS ORDERED: LISI5TAB18 PO (09:05)
[2019-12-29] MEDS ORDERED: ISOS30TE34 PO (09:05)
[2019-12-29] MEDS ORDERED: CARV6.25 PO (09:05)
[2019-12-29 09:22] LABS: PHOSPHORUS 3.7 mg/dL (2.5-4.9)
--- NOTE | 2019-12-29 09:30 | NUR ---
NEW ORDERS TO DISCHARGE PT. RECEIVED. PT. IS MADE AWARE, BUT REQUESTS TO LEAVE AFTER LUNCH. WILL FOLLOW THROUGH.
[2019-12-29 11:10] VITALS: BP 115/82
--- NOTE | 2019-12-29 11:20 | NUR ---
V/S TAKEN BP 105/68, HR 86, O2 STAT OF 100%, TEMP OF 97.4F, RR 18 AND VERBALIZES NO PAIN. BLOOD GLUCOSE CHECK NOT DONE D/T PT. REFUSING. EXPLAINED RISK AND BENEFIT. WILL CONTINUE TO MONITOR.
[2019-12-29 12:00] VITALS: BP 105/68
--- NOTE | 2019-12-29 13:00 | NUR ---
PT. IS DISCHARGED TO HOME WITH FRIEND AND ESCORTED TO LOBBY BY LORNE MELO. NO SIGNS OF DISTRESS NOTED. IV SITE AND ARMBANDS REMOVED. DISCHARGED PAPERWORKS SIGNED AND INSTRUCTIONS WERE GIVEN. PT. VERBALIZES UNDERSTANDING WILL CONTINUE TO MONITOR.
== END 2019-12-29 12:55 | disposition home or self-care (01) | DRG 194 ==
LOC: MED 16:18 → MTU 18:38
PROVIDERS: ADMIT General Practice; ATTEND General Practice
DX: I11.0 Hypertensive heart disease with heart failure (principal); I21.4 Non-ST elevation (NSTEMI) myocardial infarction; E44.0 Moderate protein-calorie malnutrition; R65.10 Systemic inflammatory response syndrome (SIRS) of non-infectious origin without acute organ dysfunction; E11.65 Type 2 diabetes mellitus with hyperglycemia; I08.1 Rheumatic disorders of both mitral and tricuspid valves; I27.20 Pulmonary hypertension, unspecified; I50.43 Acute on chronic combined systolic (congestive) and diastolic (congestive) heart failure; Z68.25 Body mass index [BMI] 25.0-25.9, adult; E78.5 Hyperlipidemia, unspecified; Z88.8 Allergy status to other drugs, medicaments and biological substances; E78.00 Pure hypercholesterolemia, unspecified; Z79.4 Long term (current) use of insulin; Z79.84 Long term (current) use of oral hypoglycemic drugs; Z79.02 Long term (current) use of antithrombotics/antiplatelets; Z79.899 Other long term (current) drug therapy; Z86.73 Personal history of transient ischemic attack (TIA), and cerebral infarction without residual deficits; I25.2 Old myocardial infarction; Z83.3 Family history of diabetes mellitus; Z82.49 Family history of ischemic heart disease and other diseases of the circulatory system; Z87.891 Personal history of nicotine dependence; Z95.5 Presence of coronary angioplasty implant and graft
CPT/HCPCS: 36415; 71045; 80048; 80053; 80305; 81003; 82150; 82948; 83690; 83735; 83880; 84100; 84134; 84436; 84443; 84484; 85025; 85610; 85730; 87081; 93005; 96372; 96374; 96375; 99285; G0482; J1644; J1815; J1940; J2270; J2405; Q0092

== ENCOUNTER 2020-03-08 13:25 | Emergency (ER) | payer MEDICAID ==
[~2020-03-08] VITALS: Ht 165.1 cm; Wt 66.7 kg
[~2020-03-08 13:25] MED LIST changes: -CARV3.12 PO; +CARV6.25 PO; +ISOS30TE34 PO; -ISOS5TAB10 PO; +LISI5TAB18 PO; +TRAM50TA1 PO; -[UNRECOGNIZED DRUG - CODE] PO
[2020-03-08 13:29] VITALS: BP 105/71
--- NOTE | 2020-03-08 13:39 | NUR ---
59 Y/O MALE FROM HOME PRESENTS TO ER FOR MEDICATION REFILL. PT STATES HE RAN OUT OF ISOSORBATE MONONITRATE. DENIES PAIN. RR EVEN AND UNLABORED, AWAKE AND ALERT. SITTING UPRIGHT IN ABHINAV.
--- NOTE | 2020-03-08 13:40 | NUR ---
VIDA MCCLURE AT [facility] EXAMINING PT
[2020-03-08 13:50] VITALS: BP 105/71
--- NOTE | 2020-03-08 13:50 | NUR ---
Patient discharged with v/s stable. Written and verbal after care instructions given and explained. Patient alert, oriented and verbalized understanding of instructions. Ambulatory with steady gait. All questions addressed prior to discharge. ID band removed. Patient advised to follow up with PMD. Rx of ISOSORBIDE MONONITRATE 30MG given. Patient educated on indication of medication including possible reaction and side effects. Opportunity to ask questions provided and answered.
== END 2020-03-08 13:50 | disposition home or self-care (01) ==
LOC: MED 13:25
DX: E11.9 Type 2 diabetes mellitus without complications (principal); I10 Essential (primary) hypertension; Z76.0 Encounter for issue of repeat prescription; Z86.73 Personal history of transient ischemic attack (TIA), and cerebral infarction without residual deficits; Z79.82 Long term (current) use of aspirin; Z79.899 Other long term (current) drug therapy; Z79.4 Long term (current) use of insulin; Z88.5 Allergy status to narcotic agent
CPT/HCPCS: 99281; 99283